=== PATIENT | male | born 1985 | race Caucasian/White ===

== ENCOUNTER 2017-01-17 19:48 | Emergency (ER) | payer OTHER ==
[~2017-01-17] VITALS: Ht 188 cm; Wt 113.4 kg
[~2017-01-17 19:48] MED LIST: COZAAR 25 MG TA25 MG PO; HYDROCODONE-AP1 EAC6 PO; MEDROLDOSEPACK PO; NAPROSYN500 MG PO; ROBAXIN 750 MG750 M1 PO; ROBAXIN500 MG PO
[2017-01-17] MEDS ORDERED: MEDROLDOSEPACK PO (21:02)
[2017-01-17] MEDS ORDERED: SENOKOT-S1 TA1 PO (21:02)
[2017-01-17] MEDS ORDERED: FLEXERIL PO (21:02)
[2017-01-17 21:04] VITALS: BP 135/90
[2017-01-17] MEDS ORDERED: NORCO 5-325 TA1 EACH PO (21:04)
== END 2017-01-17 21:14 | disposition home or self-care (01) ==
LOC: ER 19:48
DX: S39.012A Strain of muscle, fascia and tendon of lower back, initial encounter (principal); I10 Essential (primary) hypertension; X58.XXXA Exposure to other specified factors, initial encounter; Y93.89 Activity, other specified; Y92.89 Other specified places as the place of occurrence of the external cause; Y99.9 Unspecified external cause status

== ENCOUNTER 2017-05-20 02:18 | Emergency (ER) | payer OTHER ==
[~2017-05-20] VITALS: Ht 188 cm; Wt 117.9 kg
[~2017-05-20 02:18] MED LIST changes: +FLEXERIL PO; +NORCO 5-325 TA1 EACH PO; +SENOKOT-S1 TA1 PO
[2017-05-20] MEDS ORDERED: ROBAXIN500 MG PO (02:55)
[2017-05-20] MEDS ORDERED: NAPROSYN500 MG PO (02:55)
[2017-05-20] MEDS ORDERED: TRAMADOL 50 MG50 MG PO (02:55)
[2017-05-20] MEDS ORDERED: PREDNISONE 20 M20 MG PO (03:02)
[2017-05-20] MEDS ORDERED: ACETAMINOPHEN-1 EAC1 PO (03:15)
[2017-05-20 03:53] VITALS: BP 168/90
== END 2017-05-20 03:55 | disposition home or self-care (01) ==
LOC: ER 02:18
DX: M54.5 Low back pain (principal); M62.830 Muscle spasm of back; I10 Essential (primary) hypertension; F17.210 Nicotine dependence, cigarettes, uncomplicated; F10.99 Alcohol use, unspecified with unspecified alcohol-induced disorder

== ENCOUNTER 2017-09-20 16:51 | Emergency (ER) | payer OTHER ==
[~2017-09-20] VITALS: Ht 188 cm; Wt 108.9 kg
[~2017-09-20 16:51] MED LIST changes: +ACETAMINOPHEN-1 EAC1 PO; +PREDNISONE 20 M20 MG PO; +TRAMADOL 50 MG50 MG PO
[2017-09-20] MEDS ORDERED: MOBIC7.5 MG PO (17:30)
[2017-09-20] MEDS ORDERED: NORCO 5-325 TA1 EACH PO (17:30)
== END 2017-09-20 17:40 | disposition home or self-care (01) ==
LOC: ER 16:51
DX: M54.5 Low back pain (principal); G89.29 Other chronic pain; I10 Essential (primary) hypertension